=== PATIENT | female | born 1965 | race Hispanic/Latino ===

== ENCOUNTER → 2018-08-25 | Outpatient (CLI) | payer OTHER ==
[~2018-08-25] MED LIST: LOSA100T2 PO; METF-446 PO
== END | disposition home or self-care (01) ==
LOC: LAB 17:34
PROVIDERS: ATTEND Obstetrics & Gynecology
DX: Z01.419 Encounter for gynecological examination (general) (routine) without abnormal findings (principal)
CPT/HCPCS: 36415; 88175

== ENCOUNTER 2019-02-22 02:18 | Emergency (ER) | payer OTHER ==
[2019-02-22] MEDS ORDERED: LIDOCAINE 5% TOPICAL PATCH TP ONE (02:44)
[2019-02-22] MEDS ORDERED: KETOROLAC TROMETHAMINE 60 MG/2 ML VIAL ONE (02:44)
[2019-02-22] MEDS ORDERED: HYDROCODONE/ACETAMINOPHEN 10/325 MG TAB ONE (02:45)
[2019-02-22] MEDS ORDERED: LORAZEPAM 2 MG/ML 1 ML VIAL ONE (02:46)
== END 2019-02-22 04:02 | disposition home or self-care (01) ==
LOC: EDH 02:18
DX: M75.21 Bicipital tendinitis, right shoulder (principal); M62.838 Other muscle spasm; I10 Essential (primary) hypertension; E11.9 Type 2 diabetes mellitus without complications; Z90.49 Acquired absence of other specified parts of digestive tract
CPT/HCPCS: 96372 ×2; 99283; J1885; J2060

== ENCOUNTER 2019-04-21 15:45 | Inpatient (IN) | payer OTHER ==
[~2019-04-21] VITALS: Ht 152.4 cm; Wt 109.3 kg
[2019-04-21 16:21] LABS: BASOPHILS % (AUTO) 0.4 % (0.0-5.0); EOSINOPHILS % (AUTO) 1.5 % (0.0-8.0); HEMATOCRIT 37.1 % (36-48); LYMPHOCYTES % (AUTO) 23.8 % (21.0-51.0); MEAN CORPUSCULAR HEMOGLOBIN 28.9 pg (27.0-33.0); MEAN CORPUSCULAR HGB CONC 33.7 g/dL (32.0-36.0); MEAN CORPUSCULAR VOLUME 85.7 fL (79-99); MONOCYTES % (AUTO) 8.2 % (3.0-13.0); NEUTROPHILS % (AUTO) 66.1 % (40.0-77.0); PLATELET COUNT (AUTO) 236 K/uL (130-400); RED BLOOD CELL COUNT(AUTO) 4.33 MIL/uL (4.00-5.50); RED CELL DISTRIBUTION WIDTH 14.5 % (11.0-15.5); WHITE BLOOD COUNT (AUTO) 8.7 K/uL (4.8-10.8)
[2019-04-21] MEDS ORDERED: METHYLPREDNISOLONE SOD SUCC 40MG/ML 1ML ONE (16:22)
[2019-04-21] MEDS ORDERED: PANTOPRAZOLE SODIUM 40 MG TABLET.DR PO ONE (16:22)
[2019-04-21 16:31] LABS: CREATININE 0.8 mg/dL (0.5-1.5); POTASSIUM 3.5 mmol/L (3.5-5.1)
[2019-04-21 16:36] LABS: ALBUMIN 3.6 g/dL (3.5-5.0); BILIRUBIN,TOTAL 0.3 mg/dL (0.2-1.0); TOTAL PROTEIN, SERUM 7.7 g/dL (6.0-8.3)
[2019-04-21 16:43] LABS: CREATINE KINASE, TOTAL 109 U/L (21-232); MYOGLOBIN 33 ng/mL (10-92); TROPONIN I < 0.04 ng/mL (0.00-0.06)
[2019-04-21] MEDS ORDERED: FUROSEMIDE 10 MG/ML 4ML VIAL IV SCH (17:45)
[2019-04-21] MEDS ORDERED: ZOLPIDEM TARTRATE 5 MG TAB PO PRN (18:00)
[2019-04-21] MEDS ORDERED: CLONIDINE HCL 0.1 MG TABLET PO PRN (18:00)
[2019-04-21] MEDS ORDERED: ONDANSETRON HCL 4 MG/2 ML VIAL IVP PRN ×2 (18:00→21:30)
[2019-04-21] MEDS ORDERED: POTASSIUM CHLORIDE 20MEQ/100ML 100 ML IV PRN (18:00)
[2019-04-21] MEDS ORDERED: POTASSIUM CHLORIDE 10% ELIXIR 20 MEQ/15 ML UDCUP PO PRN (18:00)
[2019-04-21] MEDS ORDERED: LACTULOSE 20 GM/30 ML UDCUP PO PRN (18:00)
[2019-04-21] MEDS ORDERED: ACETAMINOPHEN 325 MG TAB PO PRN (18:00)
[2019-04-21] MEDS ORDERED: POTASSIUM CHLORIDE 20 MEQ ERTAB PO PRN (18:00)
[2019-04-21] MEDS ORDERED: GLUCAGON 1MG KIT 1 MG ML IM PRN (18:00)
[2019-04-21] MEDS ORDERED: MAG HYDROX/AL HYDROX/SIMETH ES 30 ML SUSP UDCUP PO PRN (18:00)
[2019-04-21] MEDS ORDERED: DEXTROSE 50%-WATER 50 ML DISP.SYRIN IV PRN (18:00)
[2019-04-21] MEDS ORDERED: LIDOCAINE HCL-MPF 1% 2ML VIAL IJ PRN (18:00)
[2019-04-21] MEDS ORDERED: DiphenhydrAMINE HCL 50 MG/ML VIAL IVP PRN (18:00)
[2019-04-21] MEDS ORDERED: GUAIFENESIN SUGAR-FREE 100 MG/5 ML UDCUP PO PRN (18:00)
[2019-04-21] MEDS ORDERED: NITROGLYCERIN 0.4 MG SL TAB SL PRN (18:00)
[2019-04-21] MEDS ORDERED: HYDROMORPHONE HCL 0.5 MG/0.5 ML ML IVP PRN (18:15)
[2019-04-21] MEDS ORDERED: FUROSEMIDE 10 MG/ML 4ML VIAL ONE (18:34)
[2019-04-21] MEDS ORDERED: SODIUM CHLORIDE 0.9% 10 ML VIAL IVP PRN (19:15)
[2019-04-21 19:45] VITALS: BP 162/96
[2019-04-21] MEDS ORDERED: DULA1.5P SQ (20:41)
[2019-04-21] MEDS ORDERED: LEVO25TA9 PO (20:41)
[2019-04-21] MEDS: PHARMACY COMMUNICATION MISC SCH (21:30)
[2019-04-21] MEDS: IPRATROPIUM/ALBUTEROL SULFATE 3 ML SOLUTION IH PRN (22:05)
[2019-04-21] MEDS: INSULIN R PO SSI SQ SCH (23:05)
[2019-04-21] MEDS: METHYLPREDNISOLONE SOD SUCC 125MG/2ML VIAL IVP SCH (23:09)
[2019-04-22] VITALS: BP 121/69
[2019-04-22] MEDS: PHARMACY COMMUNICATION MISC SCH ×2 (01:30→05:30)
[2019-04-22 02:25] LABS: ALANINE AMINOTRANSFERASE 59 U/L (12-78); ALBUMIN 3.6 g/dL (3.5-5.0); ASPARTATE AMINOTRANSFERASE 27 U/L (10-37); BILIRUBIN,TOTAL 0.2 mg/dL (0.2-1.0); CARBON DIOXIDE 29 mmol/L (21-32); CHLORIDE 101 mmol/L (101-111); CREATINE KINASE, TOTAL 87 U/L (21-232); CREATININE 0.9 mg/dL (0.5-1.5); GLOMERULAR FILTR. RATE CALC 70 mL/min (>60); GLUCOSE,RANDOM 226 mg/dL (70-105); MYOGLOBIN 16 ng/mL (10-92); POTASSIUM 3.8 mmol/L (3.5-5.1); SODIUM SERUM 138 mmol/L (136-145); TOTAL PROTEIN, SERUM 7.6 g/dL (6.0-8.3); TROPONIN I < 0.04 ng/mL (0.00-0.06); UREA NITROGEN, BLOOD 19 mg/dL (7-18)
[2019-04-22 02:26] LABS: HEMATOCRIT 38.4 % (36-48); MEAN CORPUSCULAR HEMOGLOBIN 29.1 pg (27.0-33.0); MEAN CORPUSCULAR HGB CONC 33.8 g/dL (32.0-36.0); MEAN CORPUSCULAR VOLUME 86.3 fL (79-99); NUCLEATED RED BLOOD CELLS 0.1 % (0.0-0.19); PLATELET COUNT (AUTO) 221 K/uL (130-400); RED BLOOD CELL COUNT(AUTO) 4.45 MIL/uL (4.00-5.50); RED CELL DISTRIBUTION WIDTH 14.1 % (11.0-15.5); WHITE BLOOD COUNT (AUTO) 9.2 K/uL (4.8-10.8)
[2019-04-22 04:00] VITALS: BP 123/72
[2019-04-22] MEDS: INSULIN R PO SSI SQ SCH ×4 (06:30→21:51)
[2019-04-22 07:30] VITALS: BP 131/78
[2019-04-22] MEDS: IPRATROPIUM/ALBUTEROL SULFATE 3 ML SOLUTION IH PRN (07:41)
[2019-04-22 08:32] LABS: CRP QUANTITATIVE 12.3 mg/L (0.00-9.0); THYROID STIMULATING HORMONE 0.43 uIU/mL (0.36-3.74)
[2019-04-22] MEDS: METHYLPREDNISOLONE SOD SUCC 125MG/2ML VIAL IVP SCH ×2 (09:15→17:08)
[2019-04-22] MEDS: PANTOPRAZOLE SODIUM 40 MG TABLET.DR PO SCH (09:15)
[2019-04-22] MEDS: ENOXAPARIN SODIUM 40 MG/0.4 ML SYRINGE SQ SCH (09:16)
[2019-04-22 09:25] LABS: CREATINE KINASE, TOTAL 85 U/L (21-232); MYOGLOBIN 18 ng/mL (10-92); TROPONIN I < 0.04 ng/mL (0.00-0.06)
[2019-04-22 11:00] VITALS: BP 126/77
[2019-04-22] MEDS ORDERED: IOHEXOL 350 MG/ML 100ML INFUS..BTL IV ONE (12:10)
--- NOTE | 2019-04-22 12:36 | NUR ---
Nutrition intervention: Nutrition notification for general body swelling. Pt admitted for chest pain, currently pending 2D echo. Reviewed Weight Loss Tips and DM diet education with pt. Pt very eager and with multiple questions on foods to eat. Pt wants to change diet habits and is looking forward to eating better. Recommendations: Continue Heart healthy diet therapy. Modify with [address] for appropriate diet placement. Consult RD if nutrition questions or concerns arise. Addendum: 04/22/19 at [address] Amended: Links added.
[2019-04-22 16:00] VITALS: BP 121/70
--- NOTE | 2019-04-22 16:55 | NUR ---
INITIAL MET W PT AND SPOUSE AT B/SIDE-[facility], EMPLOYED, INDP OF ADLS, NO DME, SPOUSE GAGE TO PROVIDE TRANSPORT; NO CONCERNS VOICED STILL UNDERGOING WORKUP OF THE CHEST PAIN/SHORTNESS OF BREATH; PENDING PULMONARY CONSULT Addendum: 04/23/19 at 1523 by BRADY CARMEN RN CM Amended: Links added.
[2019-04-22 20:38] VITALS: BP 124/72
[2019-04-23] VITALS (7 sets, daily range): BP systolic 92–131; BP diastolic 45–74
--- NOTE | 2019-04-23 | NUR ---
PT IS AWARE TO BE NPO FOR LEXISCAN PENDING. COMPLAINED OF PAIN TO RIGHT CALF. EDEMA NOTED TO ANKLE AREA. NO CHEST PAIN. NO SOB. CONTINUES ON SOLUMEDROL. INCREASED BLOOD SUGARS. AAO3. PERRLA.
[2019-04-23] MEDS: METHYLPREDNISOLONE SOD SUCC 125MG/2ML VIAL IVP SCH ×3 (00:16→16:00)
[2019-04-23] MEDS: INSULIN R PO SSI SQ SCH ×4 (06:35→20:46)
[2019-04-23] MEDS ORDERED: FUROSEMIDE 20 MG TABLET ONE (08:13)
[2019-04-23] MEDS: ENOXAPARIN SODIUM 40 MG/0.4 ML SYRINGE SQ SCH (08:19)
[2019-04-23] MEDS: PANTOPRAZOLE SODIUM 40 MG TABLET.DR PO SCH (08:19)
[2019-04-23] MEDS: FUROSEMIDE 20 MG TABLET PO SCH (09:00)
[2019-04-23] MEDS: POTASSIUM CHLORIDE 10 MEQ/TAB.SA PO SCH (09:00)
[2019-04-23] MEDS ORDERED: REGADENOSON 0.4 MG/5 ML PF SYG IVP SCH (10:45)
--- NOTE | 2019-04-23 13:00 | NUR ---
DR. INDY MAC Addendum: 04/23/19 at 1422 by CACHORRO YOON RN AGA TEJADA PT
--- NOTE | 2019-04-23 14:20 | NUR ---
DR. INDY MAC AGAIN PENDING CALL BACK Addendum: 04/23/19 at 1422 by CACHORRO YOON RN DISREGARD WRONG PT
--- NOTE | 2019-04-23 14:21 | NUR ---
PT BACK FROM [facility], DENIES SOB OR CHEST PAIN DIETARY TRAY CALLED. WILL CONTINUE TO MONITOR
[2019-04-23] MEDS: PHARMACY COMMUNICATION MISC SCH ×2 (20:04→20:05)
[2019-04-24] MEDS: METHYLPREDNISOLONE SOD SUCC 125MG/2ML VIAL IVP SCH ×3 (00:24→16:31)
[2019-04-24 04:19] VITALS: BP 118/56
[2019-04-24 04:19] LABS: CREATININE 0.8 mg/dL (0.5-1.5); MAGNESIUM 1.9 mg/dL (1.80-2.40); POTASSIUM 3.7 mmol/L (3.5-5.1)
[2019-04-24] MEDS: INSULIN R PO SSI SQ SCH ×3 (06:56→16:31)
[2019-04-24 07:39] VITALS: BP 114/54
--- NOTE | 2019-04-24 09:15 | NUR ---
RT GALILEO/PFT INFORMED BY RT GALILEO THAT PULMONARY FUNCTION TEST CAN BE DONE ON AN OUTPATIENT BASIS DUE TO NONEMERGENT NEED FOR PFT TEST.
[2019-04-24] MEDS: PHARMACY COMMUNICATION MISC SCH ×3 (09:30→16:33)
[2019-04-24] MEDS: FUROSEMIDE 20 MG TABLET PO SCH (09:52)
[2019-04-24] MEDS: POTASSIUM CHLORIDE 10 MEQ/TAB.SA PO SCH (09:53)
[2019-04-24] MEDS: PANTOPRAZOLE SODIUM 40 MG TABLET.DR PO SCH (09:53)
[2019-04-24] MEDS: ENOXAPARIN SODIUM 40 MG/0.4 ML SYRINGE SQ SCH (09:54)
[2019-04-24 11:20] VITALS: BP 116/75
[2019-04-24 15:47] VITALS: BP 109/64
--- NOTE | 2019-04-24 16:30 | NUR ---
DR. CABRERA CALLED MD TO INFORM THAT BENCHMARK OKAYED TO DISCHARGE PATIENT. DR. CABRERA DID GIVE OKAY TO DISCHARGE PATIENTS AND ASK ME TO CALL IN RX FOR LASIX 20MG PO DAILY X 30 DAYS. INFORMED MD THAT PATIENT WAS ON SOLUMEDROL 80MG IV Q8H IN THE HOSPITAL AND I ASKED IF MD WANTED TO TAPER DOWN STEROIDS. DR. CABRERA SAID HE DID NOT WANT TO ORDER STEROIDS AND IT WAS OKAY TO DISCHARGE PATIENT WITH NO STEROID RX.
--- NOTE | 2019-04-24 17:55 | NUR ---
LASIX RX CALLED IN RX LASIX 20MG PO DAILY X30 DAYS TO [facility] [phone]
== END 2019-04-24 18:56 | disposition home or self-care (01) | DRG 204 ==
LOC: EDH 15:45 → OBSVTOIN 16:17 → EDHIP 16:17 → 4AH 19:37
PROVIDERS: ADMIT Internal Medicine; ATTEND Internal Medicine
DX: R06.00 Dyspnea, unspecified (principal); Z68.42 Body mass index [BMI] 45.0-49.9, adult; E66.2 Morbid (severe) obesity with alveolar hypoventilation; J98.11 Atelectasis; J45.909 Unspecified asthma, uncomplicated; E11.9 Type 2 diabetes mellitus without complications; K21.9 Gastro-esophageal reflux disease without esophagitis; E03.9 Hypothyroidism, unspecified; E78.00 Pure hypercholesterolemia, unspecified; M19.90 Unspecified osteoarthritis, unspecified site; R07.89 Other chest pain; E78.5 Hyperlipidemia, unspecified; I10 Essential (primary) hypertension; J98.4 Other disorders of lung; Z82.49 Family history of ischemic heart disease and other diseases of the circulatory system; Z90.49 Acquired absence of other specified parts of digestive tract; Z88.8 Allergy status to other drugs, medicaments and biological substances; Z91.041 Radiographic dye allergy status; Z91.013 Allergy to seafood
CPT/HCPCS: 36415; 71045; 71250; 71275; 78452; 80048; 80053; 82550; 82948; 83735; 83874; 83880; 84238; 84443; 84484; 85025; 85027; 85378; 85651; 86038; 86140; 86215; 86235; 93005; 93017; 93306; 93970; 94640; 94664; 94760; 96374; A9500; G0378; J1650; J1815; J1940; J2785; J2920; J2930; Q9967

== ENCOUNTER → 2019-08-28 | Outpatient (CLI) | payer OTHER ==
[~2019-08-28] MED LIST changes: +DULA1.5P SQ; +LEVO25TA9 PO; -LOSA100T2 PO; -METF-446 PO
[2019-08-28 11:10] LABS: BASOPHILS % (AUTO) 0.5 % (0.0-5.0); EOSINOPHILS % (AUTO) 1.2 % (0.0-8.0); HEMATOCRIT 40.1 % (36-48); LYMPHOCYTES % (AUTO) 26.5 % (21.0-51.0); MEAN CORPUSCULAR HEMOGLOBIN 29.2 pg (27.0-33.0); MEAN CORPUSCULAR HGB CONC 33.6 g/dL (32.0-36.0); MEAN CORPUSCULAR VOLUME 86.9 fL (79-99); MONOCYTES % (AUTO) 6.1 % (3.0-13.0); NEUTROPHILS % (AUTO) 65.7 % (40.0-77.0); PLATELET COUNT (AUTO) 202 K/uL (130-400); RED BLOOD CELL COUNT(AUTO) 4.61 MIL/uL (4.00-5.50); RED CELL DISTRIBUTION WIDTH 14.2 % (11.0-15.5); WHITE BLOOD COUNT (AUTO) 7.5 K/uL (4.8-10.8)
[2019-08-28 11:32] LABS: APPEARANCE,URINE Clear (CLEAR); BILIRUBIN,URINE Negative (NEGATIVE); COLOR,URINE Yellow (YELLOW); GLUCOSE, URINE (UA) Negative (NEGATIVE); KETONES,URINE Negative (NEGATIVE); LEUKOCYTE ESTERASE ,URINE Small (NEGATIVE); NITRATE,URINE Negative (NEGATIVE); OCCULT BLOOD,URINE Negative (NEGATIVE); PROTEIN,URINE Negative (NEGATIVE); UROBILINOGEN,URINE 0.2 mg/dL (0.2-1.0)
[2019-08-28 11:34] LABS: BILIRUBIN,TOTAL 0.4 mg/dL (0.2-1.0); CREATININE 0.7 mg/dL (0.5-1.5); POTASSIUM 3.8 mmol/L (3.5-5.1); THYROID STIMULATING HORMONE 1.47 uIU/mL (0.36-3.74); TOTAL PROTEIN, SERUM 8.1 g/dL (6.0-8.3)
[2019-08-28 11:45] LABS: HEMOGLOBIN A1C 6.3 % (4.0-6.0)
[2019-08-28 12:01] LABS: BACTERIA,URINE Rare /HPF (None Seen); RBC,URINE 0-1 /HPF (0-1); SQUAMOUS EPITHELIAL CELL,UR Rare /HPF (0-2)
== END | disposition home or self-care (01) ==
LOC: LAB 09:29
PROVIDERS: ATTEND Internal Medicine
DX: E78.5 Hyperlipidemia, unspecified (principal); E03.9 Hypothyroidism, unspecified; E78.00 Pure hypercholesterolemia, unspecified; E11.9 Type 2 diabetes mellitus without complications; M19.90 Unspecified osteoarthritis, unspecified site; I10 Essential (primary) hypertension; K21.9 Gastro-esophageal reflux disease without esophagitis; Z90.49 Acquired absence of other specified parts of digestive tract; Z88.8 Allergy status to other drugs, medicaments and biological substances
CPT/HCPCS: 36415; 80053; 80061; 81001; 82306; 83036; 84439; 84443; 85025; A6260

== ENCOUNTER → 2020-06-08 | Outpatient (CLI) | payer OTHER | END | disposition home or self-care (01) | LOC: OIH 11:16 | PROVIDERS: ATTEND Internal Medicine | DX: I10 Essential (primary) hypertension (principal); M47.814 Spondylosis without myelopathy or radiculopathy, thoracic region | CPT/HCPCS: 71046 ==

== ENCOUNTER → 2020-11-07 | Outpatient (CLI) | payer OTHER | END | disposition home or self-care (01) | LOC: RAH 09:04 | PROVIDERS: ATTEND Internal Medicine Cardiovascular Disease | DX: R60.9 Edema, unspecified (principal) | CPT/HCPCS: 93970 ==

== ENCOUNTER → 2020-12-13 | Outpatient (CLI) | payer OTHER ==
[2020-12-13 12:48] LABS: BASOPHILS % (AUTO) 0.3 % (0.0-5.0); EOSINOPHILS % (AUTO) 0.7 % (0.0-8.0); LYMPHOCYTES % (AUTO) 22.9 % (21.0-51.0); MEAN CORPUSCULAR HEMOGLOBIN 28.5 pg (27.0-33.0); MEAN CORPUSCULAR HGB CONC 32.8 g/dL (32.0-36.0); MEAN CORPUSCULAR VOLUME 87.1 fL (79-99); MONOCYTES % (AUTO) 5.8 % (3.0-13.0); NEUTROPHILS % (AUTO) 70.2 % (40.0-77.0); PLATELET COUNT (AUTO) 213 K/uL (130-400); RED BLOOD CELL COUNT(AUTO) 4.59 MIL/uL (4.00-5.50)
[2020-12-13 13:03] LABS: ALBUMIN 3.8 g/dL (3.5-5.0); BILIRUBIN,TOTAL 0.4 mg/dL (0.2-1.0); CREATININE 0.7 mg/dL (0.5-1.5); CRP QUANTITATIVE 21.4 mg/L (0.00-9.0); POTASSIUM 4.3 mmol/L (3.5-5.1)
[2020-12-13 14:13] LABS: ERYTHROCYTE SEDIMENTATION RATE 35 MM/HR (0-30)
== END | disposition home or self-care (01) ==
LOC: LAB 11:41
PROVIDERS: ATTEND Internal Medicine
DX: J06.9 Acute upper respiratory infection, unspecified (principal)
CPT/HCPCS: 36415; 80053; 82728; 85025; 85378; 85651; 86140

== ENCOUNTER 2020-12-14 12:50 | Emergency (ER) | payer OTHER ==
[2020-12-14 14:36] LABS: BASOPHILS % (AUTO) 0.4 % (0.0-5.0); EOSINOPHILS % (AUTO) 0.7 % (0.0-8.0); HEMATOCRIT 41.5 % (36-48); LYMPHOCYTES % (AUTO) 22.3 % (21.0-51.0); MEAN CORPUSCULAR HEMOGLOBIN 28.9 pg (27.0-33.0); MEAN CORPUSCULAR HGB CONC 33.7 g/dL (32.0-36.0); MEAN CORPUSCULAR VOLUME 85.7 fL (79-99); MONOCYTES % (AUTO) 5.9 % (3.0-13.0); NEUTROPHILS % (AUTO) 70.3 % (40.0-77.0); PLATELET COUNT (AUTO) 239 K/uL (130-400); RED BLOOD CELL COUNT(AUTO) 4.84 MIL/uL (4.00-5.50); RED CELL DISTRIBUTION WIDTH 13.9 % (11.0-15.5); WHITE BLOOD COUNT (AUTO) 7.5 K/uL (4.8-10.8)
[2020-12-14 14:41] LABS: CREATININE 0.8 mg/dL (0.5-1.5); POTASSIUM 3.7 mmol/L (3.5-5.1)
[2020-12-14 14:51] LABS: BILIRUBIN,TOTAL 0.5 mg/dL (0.2-1.0); TOTAL PROTEIN, SERUM 8.4 g/dL (6.0-8.3)
[2020-12-14 15:03] LABS: B-TYPE NATRIURETIC PEPTIDE 7 pg/mL (0-100)
[2020-12-14 15:17] LABS: INR 1.07 (0.85-1.15); PROTHROMBIN TIME 11.4 SEC (9.6-11.6)
[2020-12-14 15:18] LABS: PARTIAL THROMBOPLASTIN TIME 30.1 SEC (26.3-35.5)
[2020-12-14 15:19] LABS: ALBUMIN 4.2 g/dL (3.5-5.0)
[2020-12-14] MEDS ORDERED: APIXABAN 2.5 MG TABLET PO ONE (18:21)
[2020-12-14 18:32] LABS: APPEARANCE,URINE Clear (CLEAR); BILIRUBIN,URINE Negative (NEGATIVE); COLOR,URINE Yellow (YELLOW); GLUCOSE, URINE (UA) Negative (NEGATIVE); KETONES,URINE Trace mg/dL (NEGATIVE); LEUKOCYTE ESTERASE ,URINE Moderate (NEGATIVE); NITRATE,URINE Negative (NEGATIVE); OCCULT BLOOD,URINE Negative (NEGATIVE); PROTEIN,URINE Negative (NEGATIVE); UROBILINOGEN,URINE 0.2 mg/dL (0.2-1.0)
[2020-12-14 18:41] LABS: BACTERIA,URINE Rare /HPF (None Seen); MUCUS,URINE Rare LPF (None Seen); RBC,URINE 0-1 /HPF (0-1); SQUAMOUS EPITHELIAL CELL,UR Few /HPF (0-2)
[2020-12-14] MEDS ORDERED: CEFTRIAXONE 1G VIAL ONE (19:06)
== END 2020-12-14 19:24 | disposition home or self-care (01) ==
LOC: EDH 12:50
DX: N30.90 Cystitis, unspecified without hematuria (principal); M79.2 Neuralgia and neuritis, unspecified; M54.6 Pain in thoracic spine; R53.81 Other malaise; R53.83 Other fatigue; Z20.822 Contact with and (suspected) exposure to COVID-19; I10 Essential (primary) hypertension; R05 Cough; E11.9 Type 2 diabetes mellitus without complications; Z91.041 Radiographic dye allergy status; Z98.890 Other specified postprocedural states
CPT/HCPCS: 36415; 71045; 80053; 81001; 82550; 83880; 84145; 84484 ×2; 85025; 85378; 85610; 85730; 87088; 87426; 93005 ×2; 96374; 99285; J0696

== ENCOUNTER → 2020-12-21 | Outpatient (CLI) | payer OTHER ==
[2020-12-21 12:14] LABS: BASOPHILS % (AUTO) 0.4 % (0.0-5.0); EOSINOPHILS % (AUTO) 0.7 % (0.0-8.0); HEMATOCRIT 40.2 % (36-48); LYMPHOCYTES % (AUTO) 23.5 % (21.0-51.0); MEAN CORPUSCULAR HEMOGLOBIN 28.3 pg (27.0-33.0); MEAN CORPUSCULAR HGB CONC 32.6 g/dL (32.0-36.0); MEAN CORPUSCULAR VOLUME 86.8 fL (79-99); MONOCYTES % (AUTO) 5.3 % (3.0-13.0); NEUTROPHILS % (AUTO) 69.8 % (40.0-77.0); PLATELET COUNT (AUTO) 222 K/uL (130-400); RED BLOOD CELL COUNT(AUTO) 4.63 MIL/uL (4.00-5.50); RED CELL DISTRIBUTION WIDTH 13.7 % (11.0-15.5); WHITE BLOOD COUNT (AUTO) 7.3 K/uL (4.8-10.8)
[2020-12-21 12:43] LABS: ALBUMIN 3.9 g/dL (3.5-5.0); BILIRUBIN,TOTAL 0.5 mg/dL (0.2-1.0); CREATININE 0.7 mg/dL (0.5-1.5); CRP QUANTITATIVE 18.8 mg/L (0.00-9.0); MAGNESIUM 1.7 mg/dL (1.80-2.40); POTASSIUM 4.2 mmol/L (3.5-5.1); THYROID STIMULATING HORMONE 1.58 uIU/mL (0.36-3.74); TOTAL PROTEIN, SERUM 8.1 g/dL (6.0-8.3)
[2020-12-21 13:22] LABS: ERYTHROCYTE SEDIMENTATION RATE 34 MM/HR (0-30)
== END | disposition home or self-care (01) ==
LOC: LAB 11:24
PROVIDERS: ATTEND Internal Medicine
DX: I10 Essential (primary) hypertension (principal); F41.8 Other specified anxiety disorders; J06.9 Acute upper respiratory infection, unspecified; K59.1 Functional diarrhea; M79.10 Myalgia, unspecified site; R53.83 Other fatigue; R79.89 Other specified abnormal findings of blood chemistry; U07.1 COVID-19
CPT/HCPCS: 36415; 80053; 82306; 82607; 83735; 84443; 85025; 85378; 85651; 86140

== ENCOUNTER → 2020-12-29 | Outpatient (CLI) | payer OTHER ==
[2020-12-29 09:59] LABS: BASOPHILS % (AUTO) 0.3 % (0.0-5.0); EOSINOPHILS % (AUTO) 1.2 % (0.0-8.0); HEMATOCRIT 38.8 % (36-48); LYMPHOCYTES % (AUTO) 27.5 % (21.0-51.0); MEAN CORPUSCULAR HEMOGLOBIN 28.6 pg (27.0-33.0); MEAN CORPUSCULAR VOLUME 86.6 fL (79-99); MONOCYTES % (AUTO) 6.2 % (3.0-13.0); NEUTROPHILS % (AUTO) 64.5 % (40.0-77.0); PLATELET COUNT (AUTO) 218 K/uL (130-400); RED BLOOD CELL COUNT(AUTO) 4.48 MIL/uL (4.00-5.50); RED CELL DISTRIBUTION WIDTH 13.8 % (11.0-15.5); WHITE BLOOD COUNT (AUTO) 7.4 K/uL (4.8-10.8)
[2020-12-29 10:14] LABS: ALBUMIN 4.1 g/dL (3.5-5.0); BILIRUBIN,TOTAL 0.4 mg/dL (0.2-1.0); CREATININE 0.9 mg/dL (0.5-1.5); CRP QUANTITATIVE 26.3 mg/L (0.00-9.0); POTASSIUM 3.8 mmol/L (3.5-5.1); THYROID STIMULATING HORMONE 1.48 uIU/mL (0.36-3.74); TOTAL PROTEIN, SERUM 8.7 g/dL (6.0-8.3)
[2020-12-29 11:05] LABS: ERYTHROCYTE SEDIMENTATION RATE 34 MM/HR (0-30)
== END | disposition home or self-care (01) ==
LOC: RAH 09:07
PROVIDERS: ATTEND Internal Medicine
DX: M51.35 Other intervertebral disc degeneration, thoracolumbar region (principal); R06.2 Wheezing; R00.0 Tachycardia, unspecified; R25.1 Tremor, unspecified; R53.83 Other fatigue; U07.1 COVID-19
CPT/HCPCS: 36415; 71046; 80053; 82728; 84443; 85025; 85378; 85651; 86140

== ENCOUNTER → 2021-12-21 | Outpatient (CLI) | payer OTHER | END | disposition home or self-care (01) | LOC: RAH 12:50 | PROVIDERS: ATTEND Internal Medicine | DX: S83.249A Other tear of medial meniscus, current injury, unspecified knee, initial encounter (principal); M17.12 Unilateral primary osteoarthritis, left knee; M25.462 Effusion, left knee; X58.XXXA Exposure to other specified factors, initial encounter; Y93.89 Activity, other specified; Y92.89 Other specified places as the place of occurrence of the external cause; Y99.8 Other external cause status | CPT/HCPCS: 73721 ==

== ENCOUNTER 2022-02-17 10:44 | Emergency (ER) | payer OTHER ==
[~2022-02-17] VITALS: Ht 152.4 cm; Wt 108.9 kg
[2022-02-17] MEDS ORDERED: 0.9%NACL 1000ML 2,000 ML IV ONE (11:20)
[2022-02-17] MEDS ORDERED: 0.9%NACL 50ML 50 ML IV ONE (11:23)
[2022-02-17] MEDS ORDERED: 0.9%NACL 1000ML 2,000 ML IV SCH (11:30)
[2022-02-17 11:40] LABS: BASOPHILS % (AUTO) 0.1 % (0.0-5.0); EOSINOPHILS % (AUTO) 0.2 % (0.0-8.0); HEMATOCRIT 38.6 % (36-48); LYMPHOCYTES % (AUTO) 4.6 % (21.0-51.0); MEAN CORPUSCULAR HGB CONC 32.9 g/dL (32.0-36.0); MONOCYTES % (AUTO) 4.2 % (3.0-13.0); NEUTROPHILS % (AUTO) 90.5 % (40.0-77.0); PLATELET COUNT (AUTO) 205 K/uL (130-400); RED BLOOD CELL COUNT(AUTO) 4.54 MIL/uL (4.00-5.50); RED CELL DISTRIBUTION WIDTH 14.1 % (11.0-15.5); WHITE BLOOD COUNT (AUTO) 10.4 K/uL (4.8-10.8)
[2022-02-17 11:48] LABS: CREATININE 0.7 mg/dL (0.5-1.5); POTASSIUM 3.6 mmol/L (3.5-5.1)
[2022-02-17 11:53] LABS: ALBUMIN 3.7 g/dL (3.5-5.0); BILIRUBIN,TOTAL 0.6 mg/dL (0.2-1.0); TOTAL PROTEIN, SERUM 7.7 g/dL (6.0-8.3)
[2022-02-17] MEDS ORDERED: PROMETHAZINE HCL 25 MG/ML 1ML AMPULE IM SCH (12:00)
[2022-02-17 13:37] LABS: APPEARANCE,URINE Clear (CLEAR); BILIRUBIN,URINE Negative (NEGATIVE); COLOR,URINE Yellow (YELLOW); GLUCOSE, URINE (UA) Negative (NEGATIVE); KETONES,URINE Negative (NEGATIVE); LEUKOCYTE ESTERASE ,URINE Trace (NEGATIVE); NITRATE,URINE Negative (NEGATIVE); OCCULT BLOOD,URINE Negative (NEGATIVE); PH,URINE 6.5 (5.0-8.0); PROTEIN,URINE Negative (NEGATIVE)
[2022-02-17] MEDS ORDERED: PROM25TA7 PO (14:03)
[2022-02-17 14:09] VITALS: BP 150/85
[2022-02-17 14:21] LABS: BACTERIA,URINE Rare /HPF (None Seen); RBC,URINE 0-1 /HPF (0-1); SQUAMOUS EPITHELIAL CELL,UR Rare /HPF (0-2); WBC,URINE None Seen /HPF (0-1)
== END 2022-02-17 14:20 | disposition home or self-care (01) ==
LOC: EDH 10:44
DX: K52.9 Noninfective gastroenteritis and colitis, unspecified (principal); E86.9 Volume depletion, unspecified; I10 Essential (primary) hypertension; Z88.8 Allergy status to other drugs, medicaments and biological substances; Z90.49 Acquired absence of other specified parts of digestive tract
CPT/HCPCS: 36415; 80053; 81001; 82948; 83690; 85025; 96360; 96361; 96372; 99283; J2550; J7030

== ENCOUNTER → 2022-05-25 | Outpatient (CLI) | payer OTHER ==
[~2022-05-25] MED LIST changes: +PROM25TA7 PO
== END | disposition home or self-care (01) ==
LOC: LAB 05-24 07:58
PROVIDERS: ATTEND Internal Medicine
DX: Z12.11 Encounter for screening for malignant neoplasm of colon (principal); E03.9 Hypothyroidism, unspecified; E11.65 Type 2 diabetes mellitus with hyperglycemia; E78.5 Hyperlipidemia, unspecified; I10 Essential (primary) hypertension; J06.9 Acute upper respiratory infection, unspecified; J45.901 Unspecified asthma with (acute) exacerbation; R53.83 Other fatigue
CPT/HCPCS: 82043

== ENCOUNTER 2022-09-17 09:01 | Observation (INO) | payer OTHER ==
[~2022-09-17] VITALS: Ht 157.5 cm; Wt 113.9 kg
[2022-09-17] MEDS ORDERED: ASPIRIN 81MG CHEW TAB PO ONE (09:30)
[2022-09-17] MEDS: NITROGLYCERIN 0.4 MG SL TAB SL PRN ×2 (09:39→09:54)
[2022-09-17 09:40] LABS: CREATININE 0.8 mg/dL (0.5-1.5); POTASSIUM 3.8 mmol/L (3.5-5.1)
[2022-09-17 09:47] LABS: ALBUMIN 3.6 g/dL (3.5-5.0); TOTAL PROTEIN, SERUM 7.6 g/dL (6.0-8.3)
[2022-09-17 09:51] LABS: BASOPHILS % (AUTO) 0.2 % (0.0-5.0); HEMATOCRIT 38.5 % (36-48); LYMPHOCYTES % (AUTO) 27.2 % (21.0-51.0); MEAN CORPUSCULAR HEMOGLOBIN 28.3 pg (27.0-33.0); MEAN CORPUSCULAR HGB CONC 32.7 g/dL (32.0-36.0); MEAN CORPUSCULAR VOLUME 86.3 fL (79-99); MONOCYTES % (AUTO) 7.2 % (3.0-13.0); PLATELET COUNT (AUTO) 197 K/uL (130-400); RED BLOOD CELL COUNT(AUTO) 4.46 MIL/uL (4.00-5.50); RED CELL DISTRIBUTION WIDTH 14.1 % (11.0-15.5); WHITE BLOOD COUNT (AUTO) 8.2 K/uL (4.8-10.8)
[2022-09-17] MEDS ORDERED: NITROGLYCERIN 50MG/D5W 250ML 250 BOT IV SCH (11:15)
[2022-09-17] MEDS ORDERED: HEPARIN 25,000 UNITS/250ML D5W 250 ML IV SCH (11:30)
[2022-09-17] MEDS ORDERED: NITROGLYCERIN 50MG/D5W 250ML 1 BOT ONE (11:45)
[2022-09-17 12:19] LABS: INR 0.93 (0.85-1.15); PROTHROMBIN TIME 10.1 SEC (9.6-11.6)
[2022-09-17 12:20] LABS: PARTIAL THROMBOPLASTIN TIME 27.6 SEC (26.3-35.5)
[2022-09-17] MEDS ORDERED: AMLODIPINE 5 MG TAB PO SCH (12:30)
[2022-09-17] MEDS ORDERED: HEPARIN 5,000 UNIT VIAL ONE (12:33)
[2022-09-17 13:20] LABS: HCG,QUALITATIVE URINE NEGATIVE (NEGATIVE)
[2022-09-17 13:24] LABS: APPEARANCE,URINE CLEAR (CLEAR); BILIRUBIN,URINE NEGATIVE (NEGATIVE); COLOR,URINE COLORLESS (YELLOW); GLUCOSE, URINE (UA) NEGATIVE (NEGATIVE); KETONES,URINE NEGATIVE (NEGATIVE); LEUKOCYTE ESTERASE ,URINE 25 Leu/uL (NEGATIVE); NITRATE,URINE NEGATIVE (NEGATIVE); OCCULT BLOOD,URINE NEGATIVE (NEGATIVE); PROTEIN,URINE NEGATIVE (NEGATIVE); UROBILINOGEN,URINE 0.2 mg/dL (0.2-1.0)
[2022-09-17 13:31] LABS: BACTERIA,URINE RARE /HPF (None Seen); RBC,URINE 0-1 /HPF (0-1); SQUAMOUS EPITHELIAL CELL,UR MANY /HPF (0-2)
[2022-09-17] MEDS ORDERED: LABE100T7 PO (14:23)
[2022-09-17] MEDS ORDERED: NITROGLYCERIN 0.4 MG SL TAB SL PRN (17:30)
[2022-09-17 18:09] LABS: PROTHROMBIN TIME 10.9 SEC (9.6-11.6)
[2022-09-17 18:13] VITALS: BP 149/80
[2022-09-17] MEDS ORDERED: HEPARIN 25,000 UNITS/250ML D5W 250 ML IV ONE (18:25)
[2022-09-17 18:29] LABS: PARTIAL THROMBOPLASTIN TIME > 139.0 SEC (26.3-35.5)
[2022-09-17 19:18] LABS: BASOPHILS % (AUTO) 0.2 % (0.0-5.0); EOSINOPHILS % (AUTO) 0.8 % (0.0-8.0); HEMATOCRIT 36.6 % (36-48); MEAN CORPUSCULAR HEMOGLOBIN 28.3 pg (27.0-33.0); MEAN CORPUSCULAR HGB CONC 33.1 g/dL (32.0-36.0); MEAN CORPUSCULAR VOLUME 85.5 fL (79-99); MONOCYTES % (AUTO) 6.9 % (3.0-13.0); NEUTROPHILS % (AUTO) 61.7 % (40.0-77.0); PLATELET COUNT (AUTO) 218 K/uL (130-400); RED BLOOD CELL COUNT(AUTO) 4.28 MIL/uL (4.00-5.50); RED CELL DISTRIBUTION WIDTH 14.1 % (11.0-15.5); WHITE BLOOD COUNT (AUTO) 8.9 K/uL (4.8-10.8)
[2022-09-17] MEDS ORDERED: TICAGRELOR 90 MG TABLET PO SCH (19:30)
[2022-09-17] MEDS ORDERED: PREDNISONE 10 MG TABLET PO ONE (19:45)
[2022-09-17 20:03] VITALS: BP 159/78
[2022-09-17] MEDS ORDERED: ATORVASTATIN 40 MG TABLET PO SCH (21:00)
[2022-09-17] MEDS ORDERED: ENOXAPARIN SODIUM 1 MG/KG SQ SCH (21:00)
[2022-09-17 23:28] VITALS: BP 136/74
[2022-09-18] VITALS (11 sets, daily range): BP systolic 121–161; BP diastolic 51–89
[2022-09-18] MEDS ORDERED: PREDNISONE 10 MG TABLET PO ONE (01:00)
[2022-09-18 02:22] LABS: BASOPHILS % (AUTO) 0.2 % (0.0-5.0); EOSINOPHILS % (AUTO) 0.1 % (0.0-8.0); HEMATOCRIT 36.6 % (36-48); LYMPHOCYTES % (AUTO) 10.3 % (21.0-51.0); MEAN CORPUSCULAR HEMOGLOBIN 28.4 pg (27.0-33.0); MEAN CORPUSCULAR HGB CONC 33.6 g/dL (32.0-36.0); MEAN CORPUSCULAR VOLUME 84.5 fL (79-99); MONOCYTES % (AUTO) 2.3 % (3.0-13.0); NEUTROPHILS % (AUTO) 86.6 % (40.0-77.0); PLATELET COUNT (AUTO) 217 K/uL (130-400); RED BLOOD CELL COUNT(AUTO) 4.33 MIL/uL (4.00-5.50); WHITE BLOOD COUNT (AUTO) 10.1 K/uL (4.8-10.8)
[2022-09-18] MEDS ORDERED: IOHEXOL 350 MG/ML 100ML INFUS..BTL IV ONE (08:22)
[2022-09-18] MEDS ORDERED: FENTANYL CITRATE PF 50 MCG/1 ML 2ML VIAL ONE (08:22)
[2022-09-18] MEDS ORDERED: LIDOCAINE HCL 1% 20 ML VIAL ONE (08:22)
[2022-09-18] MEDS ORDERED: NITROGLYCERIN 50MG VIAL ONE (08:22)
[2022-09-18] MEDS ORDERED: HEPARIN 10,000 UNIT/10ML (1,000 UNIT/ML) VIAL ONE (08:22)
[2022-09-18] MEDS ORDERED: SOLU-MEDROL 125MG VIAL ONE ×2 (08:22→08:36)
[2022-09-18] MEDS ORDERED: NICARDIPINE 25MG INJ IV ONE (08:22)
[2022-09-18] MEDS ORDERED: IOHEXOL-350 75 ML VIAL IV ONE (08:22)
[2022-09-18] MEDS ORDERED: MIDAZOLAM HCL 1 MG/ML 2ML VIAL ONE (08:22)
[2022-09-18] MEDS ORDERED: IOHEXOL-350 50ML VIAL IV ONE (08:22)
[2022-09-18] MEDS ORDERED: DiphenhydrAMINE HCL 50 MG/ML VIAL ONE (08:23)
[2022-09-18] MEDS ORDERED: VERAPAMIL HCL 2.5 MG/ML VIAL ONE (08:32)
[2022-09-18] MEDS ORDERED: PREDNISONE 10 MG TABLET ONE (08:40)
[2022-09-18] MEDS ORDERED: TICAGRELOR 90 MG TABLET PO SCH (09:00)
[2022-09-18] MEDS ORDERED: ASPIRIN 81 MG EC TAB PO SCH (09:00)
[2022-09-18] MEDS: 0.9%NACL 1000ML 500 ML IV SCH ×2 (10:50→15:15)
[2022-09-18] MEDS ORDERED: AMLO5TAB4 PO (14:16)
== END 2022-09-18 15:40 | disposition home or self-care (01) ==
LOC: EDH 09:01 → EDHIP 12:20 → 2CH 17:16 → 2DH 17:34
PROVIDERS: ADMIT Internal Medicine; ATTEND Internal Medicine
DX: I20.1 Angina pectoris with documented spasm (principal); R07.89 Other chest pain; I10 Essential (primary) hypertension; E11.9 Type 2 diabetes mellitus without complications; E78.5 Hyperlipidemia, unspecified; I20.0 Unstable angina; J45.909 Unspecified asthma, uncomplicated; K21.9 Gastro-esophageal reflux disease without esophagitis; Z79.4 Long term (current) use of insulin; Z90.49 Acquired absence of other specified parts of digestive tract; Z90.710 Acquired absence of both cervix and uterus; Z91.041 Radiographic dye allergy status; Z79.899 Other long term (current) drug therapy; Z98.890 Other specified postprocedural states
CPT/HCPCS: 36415; 71045; 80053; 81001; 81025; 82550; 82948; 83874; 84484; 85025; 85610; 85730; 93005; 93306; 93356; 93458; 96365; 96366; 96368; 99156; 99157; C1769; G0378; J1200; J1644; J2250; J2930; J3010; J3490; J7030; J7512; Q9967

== ENCOUNTER → 2022-10-11 | Outpatient (CLI) | payer OTHER ==
[~2022-10-11] MED LIST changes: +AMLO5TAB4 PO; +LABE100T7 PO; -PROM25TA7 PO
== END | disposition home or self-care (01) ==
LOC: RAH 13:36
PROVIDERS: ATTEND Internal Medicine
DX: Z12.31 Encounter for screening mammogram for malignant neoplasm of breast (principal)
CPT/HCPCS: 77067

== ENCOUNTER → 2023-02-21 | Outpatient (CLI) | payer OTHER ==
[2023-02-21 10:54] LABS: BASOPHILS % (AUTO) 0.1 % (0.0-5.0); HEMATOCRIT 38.5 % (36-48); LYMPHOCYTES % (AUTO) 17.8 % (21.0-51.0); MEAN CORPUSCULAR HEMOGLOBIN 28.9 pg (27.0-33.0); MEAN CORPUSCULAR VOLUME 87.5 fL (79-99); MONOCYTES % (AUTO) 6.5 % (3.0-13.0); NEUTROPHILS % (AUTO) 74.2 % (40.0-77.0); PLATELET COUNT (AUTO) 217 K/uL (130-400); RED CELL DISTRIBUTION WIDTH 14.4 % (11.0-15.5); WHITE BLOOD COUNT (AUTO) 7.7 K/uL (4.8-10.8)
[2023-02-21 11:03] LABS: HEMOGLOBIN A1C 5.5 % (4.0-6.0)
[2023-02-21 11:32] LABS: ALBUMIN 3.8 g/dL (3.5-5.0); BILIRUBIN,DIRECT 0.1 mg/dL (0.0-0.3); CREATININE 0.8 mg/dL (0.5-1.5); TOTAL PROTEIN, SERUM 7.3 g/dL (6.0-8.3)
== END | disposition home or self-care (01) ==
LOC: LAB 09:46
PROVIDERS: ATTEND Internal Medicine
DX: I10 Essential (primary) hypertension (principal); E11.65 Type 2 diabetes mellitus with hyperglycemia; E03.9 Hypothyroidism, unspecified; E53.9 Vitamin B deficiency, unspecified; K76.0 Fatty (change of) liver, not elsewhere classified; K86.1 Other chronic pancreatitis; E78.5 Hyperlipidemia, unspecified; E55.9 Vitamin D deficiency, unspecified
CPT/HCPCS: 36415; 80053; 80061; 80076; 82043; 82248; 82306; 82607; 83036; 83690; 84443; 85025

== ENCOUNTER → 2023-04-29 | Outpatient (CLI) | payer OTHER ==
[2023-04-29 12:19] LABS: BASOPHILS % (AUTO) 0.2 % (0.0-5.0); EOSINOPHILS % (AUTO) 0.3 % (0.0-8.0); HEMATOCRIT 39.4 % (36-48); LYMPHOCYTES % (AUTO) 13.3 % (21.0-51.0); MEAN CORPUSCULAR HEMOGLOBIN 28.6 pg (27.0-33.0); MEAN CORPUSCULAR VOLUME 86.6 fL (79-99); MONOCYTES % (AUTO) 4.4 % (3.0-13.0); NEUTROPHILS % (AUTO) 81.5 % (40.0-77.0); PLATELET COUNT (AUTO) 244 K/uL (130-400); RED BLOOD CELL COUNT(AUTO) 4.55 MIL/uL (4.00-5.50); RED CELL DISTRIBUTION WIDTH 14.2 % (11.0-15.5); WHITE BLOOD COUNT (AUTO) 9.4 K/uL (4.8-10.8)
[2023-04-29 12:31] LABS: ALBUMIN 3.9 g/dL (3.5-5.0); CREATININE 0.7 mg/dL (0.5-1.5); POTASSIUM 4.4 mmol/L (3.5-5.1); TOTAL PROTEIN, SERUM 7.7 g/dL (6.0-8.3)
[2023-04-29 13:08] LABS: B-TYPE NATRIURETIC PEPTIDE < 5 pg/mL (0-100)
== END | disposition home or self-care (01) ==
LOC: LAB 11:27
PROVIDERS: ATTEND Internal Medicine
DX: I10 Essential (primary) hypertension (principal); R06.02 Shortness of breath; E03.9 Hypothyroidism, unspecified; E11.65 Type 2 diabetes mellitus with hyperglycemia; H60.92 Unspecified otitis externa, left ear; J30.9 Allergic rhinitis, unspecified
CPT/HCPCS: 36415; 71046; 80053; 83880; 85025

== ENCOUNTER → 2023-09-04 | Outpatient (CLI) | payer OTHER ==
[2023-09-04 09:45] LABS: BASOPHILS # (AUTO) 0.03 K/uL (0.00-0.20); BASOPHILS % (AUTO) 0.4 % (0.0-5.0); EOSINOPHILS # (AUTO) 0.09 K/uL (0.00-0.70); EOSINOPHILS % (AUTO) 1.1 % (0.0-8.0); HEMATOCRIT 40.4 % (36-48); IMMATURE GRANULOCYTE ABSOLUTE 0.04 K/uL (0-1); LYMPHOCYTES # (AUTO) 1.5 K/uL (1.0-4.8); LYMPHOCYTES % (AUTO) 18.4 % (21.0-51.0); MEAN CORPUSCULAR HEMOGLOBIN 28.9 pg (27.0-33.0); MEAN CORPUSCULAR HGB CONC 32.4 g/dL (32.0-36.0); MONOCYTES # (AUTO) 0.4 K/uL (0.1-1.0); MONOCYTES % (AUTO) 5.3 % (3.0-13.0); NEUTROPHILS # (AUTO) 5.9 K/uL (1.8-7.7); NEUTROPHILS % (AUTO) 74.3 % (40.0-77.0); PLATELET COUNT (AUTO) 233 K/uL (130-400); RED BLOOD CELL COUNT(AUTO) 4.54 MIL/uL (4.00-5.50); RED CELL DISTRIBUTION WIDTH 13.7 % (11.0-15.5)
[2023-09-04 09:55] LABS: HEMOGLOBIN A1C 5.6 % (4.0-6.0)
[2023-09-04 10:09] LABS: BILIRUBIN,TOTAL 0.5 mg/dL (0.2-1.0); CREATININE 0.8 mg/dL (0.5-1.5); POTASSIUM 3.8 mmol/L (3.5-5.1); THYROID STIMULATING HORMONE 1.8 uIU/mL (0.36-3.74); TOTAL PROTEIN, SERUM 8.3 g/dL (6.0-8.3)
== END | disposition home or self-care (01) ==
LOC: LAB 10:00
PROVIDERS: ATTEND Internal Medicine
DX: E11.65 Type 2 diabetes mellitus with hyperglycemia (principal); I10 Essential (primary) hypertension; E03.9 Hypothyroidism, unspecified
CPT/HCPCS: 36415; 80053; 80061; 83036; 83690; 84443; 85025

== ENCOUNTER → 2023-09-06 | Outpatient (CLI) | payer OTHER ==
[2023-09-06 15:14] LABS: APPEARANCE,URINE CLOUDY (CLEAR); BILIRUBIN,URINE NEGATIVE (NEGATIVE); COLOR,URINE YELLOW (YELLOW); GLUCOSE, URINE (UA) NEGATIVE (NEGATIVE); KETONES,URINE NEGATIVE (NEGATIVE); LEUKOCYTE ESTERASE ,URINE 500 Leu/uL (NEGATIVE); NITRATE,URINE NEGATIVE (NEGATIVE); OCCULT BLOOD,URINE NEGATIVE (NEGATIVE); PROTEIN,URINE 10 mg/dL (NEGATIVE); UROBILINOGEN,URINE 0.2 mg/dL (0.2-1.0)
[2023-09-06 15:20] LABS: ADD UA MICROSCOPIC YES
[2023-09-06 15:22] LABS: BACTERIA,URINE RARE /HPF (None Seen); MUCUS,URINE RARE LPF (None Seen); NON-SQUAMOUS EPITHELIAL CELL 1 /HPF (0-2); SQUAMOUS EPITHELIAL CELL,UR MANY /HPF (0-2); WBC,URINE 51-100 /HPF (0-1)
== END | disposition home or self-care (01) ==
LOC: LAB 07:46
PROVIDERS: ATTEND Internal Medicine
DX: J84.89 Other specified interstitial pulmonary diseases (principal); M47.25 Other spondylosis with radiculopathy, thoracolumbar region; I10 Essential (primary) hypertension; R30.0 Dysuria
CPT/HCPCS: 71046; 72070; 81001; 87088

== ENCOUNTER 2024-08-06 08:49 | Emergency (ER) | payer OTHER ==
[~2024-08-06] VITALS: Ht 152.4 cm; Wt 95.7 kg
[2024-08-06] MEDS ORDERED: IBUP-2070 PO (10:42)
[2024-08-06] MEDS ORDERED: LIDO1ADH71 TP (10:42)
[2024-08-06] MEDS: LIDOCAINE 4% ADH..PATCH TP ONE ×2 (11:54→11:56)
[2024-08-06] MEDS: ibuPROFEN 600 MG TABLET PO ONE ×2 (11:54→11:56)
[2024-08-06] MEDS: ketOROlac 30MG VIAL (30MG/ML) IM ONE (11:54)
[2024-08-06] MEDS: CYCLOBENZAPRINE HCL 10 MG TABLET PO ONE ×2 (11:55→11:56)
[2024-08-06] MEDS: ketOROlac 60 MG VIAL (30MG/ML) IM ONE (11:56)
[2024-08-06 12:06] VITALS: BP 149/86; PULSE 84; RESP 16; TEMP 97.7; O2SAT 100
== END 2024-08-06 12:17 | disposition home or self-care (01) ==
LOC: EDH 08:49
DX: S43.401A Unspecified sprain of right shoulder joint, initial encounter (principal); S13.9XXA Sprain of joints and ligaments of unspecified parts of neck, initial encounter; E11.9 Type 2 diabetes mellitus without complications; I11.0 Hypertensive heart disease with heart failure; I50.9 Heart failure, unspecified; Z91.041 Radiographic dye allergy status; Z88.8 Allergy status to other drugs, medicaments and biological substances; Z79.899 Other long term (current) drug therapy; Z90.49 Acquired absence of other specified parts of digestive tract; Z90.710 Acquired absence of both cervix and uterus; X50.0XXA Overexertion from strenuous movement or load, initial encounter; Y93.89 Activity, other specified; Y92.89 Other specified places as the place of occurrence of the external cause; Y99.8 Other external cause status
CPT/HCPCS: 99284; 73030; 96372; J1885

== ENCOUNTER → 2024-08-19 | Outpatient (CLI) | payer OTHER ==
[~2024-08-19] MED LIST changes: +IBUP-2070 PO; +LIDO1ADH71 TP
[2024-08-20 11:40] LABS: BASOPHILS # (AUTO) 0.04 K/uL (0.00-0.20); BASOPHILS % (AUTO) 0.5 % (0.0-5.0); EOSINOPHILS # (AUTO) 0.09 K/uL (0.00-0.70); HEMATOCRIT 39.3 % (36-48); IMMATURE GRANULOCYTE ABSOLUTE 0.02 K/uL (0-1); LYMPHOCYTES # (AUTO) 1.9 K/uL (1.0-4.8); LYMPHOCYTES % (AUTO) 21.2 % (21.0-51.0); MEAN CORPUSCULAR HEMOGLOBIN 28.7 pg (27.0-33.0); MEAN CORPUSCULAR HGB CONC 32.8 g/dL (32.0-36.0); MEAN CORPUSCULAR VOLUME 87.5 fL (79-99); MONOCYTES # (AUTO) 0.5 K/uL (0.1-1.0); MONOCYTES % (AUTO) 5.5 % (3.0-13.0); NEUTROPHILS # (AUTO) 6.3 K/uL (1.8-7.7); NEUTROPHILS % (AUTO) 71.6 % (40.0-77.0); PLATELET COUNT (AUTO) 236 K/uL (130-400); RED BLOOD CELL COUNT(AUTO) 4.49 MIL/uL (4.00-5.50); RED CELL DISTRIBUTION WIDTH 13.6 % (11.0-15.5); WHITE BLOOD COUNT (AUTO) 8.8 K/uL (4.8-10.8)
[2024-08-20 11:48] LABS: HEMOGLOBIN A1C 5.5 % (4.0-6.0)
[2024-08-20 12:32] LABS: BILIRUBIN,DIRECT 0.1 mg/dL (0.0-0.3); BILIRUBIN,TOTAL 0.4 mg/dL (0.2-1.0); CREATININE 0.9 mg/dL (0.5-1.0); POTASSIUM 4.2 mmol/L (3.5-5.1); THYROID STIMULATING HORMONE 2.14 uIU/mL (0.36-3.74); TOTAL PROTEIN, SERUM 8.1 g/dL (6.0-8.3)
== END | disposition home or self-care (01) ==
LOC: LAB 07:27
PROVIDERS: ATTEND Internal Medicine
DX: E11.65 Type 2 diabetes mellitus with hyperglycemia (principal); E78.5 Hyperlipidemia, unspecified; E03.9 Hypothyroidism, unspecified; R53.83 Other fatigue
CPT/HCPCS: 36415; 80048; 80061; 80076; 82043; 82306; 82570; 82607; 83036; 84443; 85025

== ENCOUNTER → 2024-10-09 | Outpatient (CLI) | payer OTHER ==
[2024-10-09 10:57] LABS: BASOPHILS # (AUTO) 0.03 K/uL (0.00-0.20); BASOPHILS % (AUTO) 0.4 % (0.0-5.0); EOSINOPHILS # (AUTO) 0.08 K/uL (0.00-0.70); HEMATOCRIT 37.2 % (36-48); IMMATURE GRANULOCYTE ABSOLUTE 0.01 K/uL (0-1); LYMPHOCYTES # (AUTO) 1.7 K/uL (1.0-4.8); LYMPHOCYTES % (AUTO) 21.7 % (21.0-51.0); MEAN CORPUSCULAR HEMOGLOBIN 29.1 pg (27.0-33.0); MEAN CORPUSCULAR HGB CONC 33.3 g/dL (32.0-36.0); MEAN CORPUSCULAR VOLUME 87.3 fL (79-99); MONOCYTES # (AUTO) 0.5 K/uL (0.1-1.0); NEUTROPHILS # (AUTO) 5.4 K/uL (1.8-7.7); NEUTROPHILS % (AUTO) 70.8 % (40.0-77.0); PLATELET COUNT (AUTO) 224 K/uL (130-400); RED BLOOD CELL COUNT(AUTO) 4.26 MIL/uL (4.00-5.50); RED CELL DISTRIBUTION WIDTH 13.9 % (11.0-15.5); WHITE BLOOD COUNT (AUTO) 7.7 K/uL (4.8-10.8)
[2024-10-09 11:34] LABS: ALBUMIN 3.8 g/dL (3.5-5.0); BILIRUBIN,TOTAL 0.4 mg/dL (0.2-1.0); CREATININE 0.7 mg/dL (0.5-1.0); POTASSIUM 4.5 mmol/L (3.5-5.1); THYROID STIMULATING HORMONE 1.86 uIU/mL (0.36-3.74); TOTAL PROTEIN, SERUM 7.7 g/dL (6.0-8.3)
[2024-10-09 12:33] LABS: ERYTHROCYTE SEDIMENTATION RATE 30 MM/HR (0-30)
== END | disposition home or self-care (01) ==
LOC: LAB 10-08 08:31
PROVIDERS: ATTEND Internal Medicine
DX: N64.4 Mastodynia (principal); I88.9 Nonspecific lymphadenitis, unspecified; E03.9 Hypothyroidism, unspecified
CPT/HCPCS: 36415; 80053; 84443; 85025; 85651

== ENCOUNTER → 2024-10-15 | Outpatient (CLI) | payer OTHER ==
--- NOTE | 2024-10-15 15:24 | HMCIMG ---
US SOFT TISSUE AXILLA REASON: LYMPHADENITIS AND RT BREAST PAIN. COMPARISON: None TECHNIQUE: Left axilla ultrasound study was performed. FINDINGS: There are multiple left axillary lymph nodes measuring 2.4 x 1.2 x 2 cm, 2.4 x 1 x 1.8 cm and 1.4 x 0.5 x 1.5 cm each. IMPRESSION: Borderline size left axillary lymph nodes.
--- NOTE | 2024-10-16 08:59 | HMCIMG ---
PROCEDURE: MAMMO DX BILATERAL, US BREAST COMPLETE UNILATERAL HISTORY: Lumps under axilla COMPARISON: 10/11/2022 TECHNIQUE: Bilateral digital diagnostic mammogram with CAD was performed. Additional cone compression views of bilateral breasts were obtained. Right breast ultrasound study was performed. FINDINGS: The breasts are heterogeneously dense, which may obscure small masses. Stable intramammary lymph nodes are seen in both breasts. Dystrophic calcifications are again seen in the left breast. There is no evidence of a dominant mass, or suspicious microcalcification. There is no evidence of nipple retraction or skin thickening. Right breast ultrasound study shows right axillary lymph nodes with the largest measuring 6.3 x 1.8 x 1.9 cm at the region of interest. There is prominent retroareolar duct measuring 2 mm. IMPRESSION: 1. Stable mammogram. Right axillary lymph nodes with the largest at the region of interest measuring 6.3 x 1.8 x 1.9 cm. BI-RADS: CATEGORY 2: BENIGN FINDINGS Recommend monthly self breast exam as well as annual clinical examination. A negative x-ray should not delay biopsy if a dominant or clinically suspicious mass is present, since 8-10% of cancers are not identified by mammography. Dense breasts particularly, may obscure an underlying neoplasm. Some of these may be detected clinically and therefore, clinical examination is an essential part of breast evaluation.
== END | disposition home or self-care (01) ==
LOC: RAH 13:52
PROVIDERS: ATTEND Internal Medicine
DX: R59.0 Localized enlarged lymph nodes (principal); N64.4 Mastodynia; R92.30 Dense breasts, unspecified
CPT/HCPCS: 76641; 76882; 77066

== ENCOUNTER → 2024-12-02 | Outpatient (CLI) | payer OTHER ==
[~2024-12-02] MED LIST changes: +TIRZ10PE SQ
[2024-12-02 09:31] LABS: INR <= 0.93 (0.85-1.15); PROTHROMBIN TIME 10.1 SEC (9.6-11.6)
[2024-12-02 09:32] LABS: PARTIAL THROMBOPLASTIN TIME 23.6 SEC (26.3-35.5)
--- NOTE | 2024-12-02 10:10 | NUR ---
U/S GD RT AXILLARY LYMPH NODE BX TOLERATED PROCEDURE. PERFORMED BY DR Mary CARREON. PUNCTURE SITE TO RT AXILLA. X7 SPECIMEN REMOVED AND SENT TO LAB. END OF PROCEDURE AT 0950. DRESSING APPLIED. NO BLEEDING NOTED. DRY AND INTACT. DISCHARGE INSTRUCTIONS GIVEN. VERBALIZED UNDERSTANDING. DENIES PAIN. A&O. DISCHARGE VIA AMBULATORY.
--- NOTE | 2024-12-02 10:13 | HMCIMG ---
US BIOPSY LYMPHNODE HISTORY: Right axillary lymph node COMPARISON: None TECHNIQUE: Informed consent was obtained. Risks and benefits were explained to the patient. A timeout was performed. Patient was prepped and draped in a sterile fashion. Local anesthetics was given as required. Under ultrasound guidance, right axillary lymph node was localized at deep aspect. The study is limited due to patient's body habitus. Ultrasound guidance core biopsy was performed with 20-gauge Bard biopsy gun with coaxial arrangement. FINDINGS: 8 core biopsy samples were obtained. Patient tolerated procedure without complication. Patient left the department in good condition. IMPRESSION: 1. Uncomplicated ultrasound guidance right axillary lymph node core biopsy.
== END | disposition home or self-care (01) ==
LOC: RAH 08:23
PROVIDERS: ATTEND Student in an Organized Health Care Education/Training Program
DX: R59.0 Localized enlarged lymph nodes (principal); D48.61 Neoplasm of uncertain behavior of right breast; Z79.01 Long term (current) use of anticoagulants
CPT/HCPCS: 85610; 85730; 88184; 88185; 36415; 88305; 38505; 76942; 88188; C1887

== ENCOUNTER → 2024-12-21 | Outpatient (CLI) | payer OTHER ==
[2024-12-18 15:55] VITALS: BP 143/84; PULSE 80; RESP 18; TEMP 97.7
[~2024-12-21] VITALS: Ht 152.4 cm; Wt 233.3 kg
[~2024-12-21] MED LIST changes: -AMLO5TAB4 PO; -DULA1.5P SQ; -IBUP-2070 PO; -LABE100T7 PO; -LIDO1ADH71 TP
[2024-12-21 11:54] LABS: BASOPHILS # (AUTO) 0.02 K/uL (0.00-0.20); BASOPHILS % (AUTO) 0.3 % (0.0-5.0); EOSINOPHILS # (AUTO) 0.06 K/uL (0.00-0.70); EOSINOPHILS % (AUTO) 0.8 % (0.0-8.0); HEMATOCRIT 36.4 % (36-48); IMMATURE GRANULOCYTE ABSOLUTE 0.02 K/uL (0-1); LYMPHOCYTES # (AUTO) 1.8 K/uL (1.0-4.8); LYMPHOCYTES % (AUTO) 22.9 % (21.0-51.0); MEAN CORPUSCULAR HEMOGLOBIN 28.9 pg (27.0-33.0); MEAN CORPUSCULAR HGB CONC 33.5 g/dL (32.0-36.0); MEAN CORPUSCULAR VOLUME 86.3 fL (79-99); MONOCYTES # (AUTO) 0.6 K/uL (0.1-1.0); MONOCYTES % (AUTO) 7.2 % (3.0-13.0); NEUTROPHILS # (AUTO) 5.4 K/uL (1.8-7.7); NEUTROPHILS % (AUTO) 68.5 % (40.0-77.0); PLATELET COUNT (AUTO) 235 K/uL (130-400); RED BLOOD CELL COUNT(AUTO) 4.22 MIL/uL (4.00-5.50); RED CELL DISTRIBUTION WIDTH 13.8 % (11.0-15.5); WHITE BLOOD COUNT (AUTO) 7.9 K/uL (4.8-10.8)
[2024-12-21 12:08] LABS: INR <= 0.93 (0.85-1.15); PROTHROMBIN TIME 10.3 SEC (9.6-11.6)
[2024-12-21 12:09] LABS: PARTIAL THROMBOPLASTIN TIME 29.3 SEC (26.3-35.5)
[2024-12-21 12:11] LABS: ALBUMIN 3.7 g/dL (3.5-5.0); BILIRUBIN,TOTAL 0.4 mg/dL (0.2-1.0); CREATININE 0.9 mg/dL (0.5-1.0); POTASSIUM 4.2 mmol/L (3.5-5.1); TOTAL PROTEIN, SERUM 7.4 g/dL (6.0-8.3)
--- NOTE | 2024-12-21 12:50 | HMCIMG ---
CHEST 1VW REASON: preop COMPARISON: 09/06/2023 FINDINGS: Single view of the chest was obtained. Lungs are clear. Heart size is normal. There is no pulmonary vascular congestion. Mediastinum and bony thorax appear unremarkable. IMPRESSION: 1. Normal single view chest x-ray.
== END ==
LOC: DAH 11:00 → EDSTATUS 01-11 10:00
PROVIDERS: ATTEND Student in an Organized Health Care Education/Training Program
DX: R59.9 Enlarged lymph nodes, unspecified (principal); Z53.8 Procedure and treatment not carried out for other reasons; E11.9 Type 2 diabetes mellitus without complications; E66.9 Obesity, unspecified; Z68.41 Body mass index [BMI] 40.0-44.9, adult; Z90.49 Acquired absence of other specified parts of digestive tract; Z79.01 Long term (current) use of anticoagulants; Z90.710 Acquired absence of both cervix and uterus; Z82.49 Family history of ischemic heart disease and other diseases of the circulatory system; Z80.9 Family history of malignant neoplasm, unspecified; Z83.3 Family history of diabetes mellitus; Z91.041 Radiographic dye allergy status
CPT/HCPCS: 80053; 85025; 85610; 85730; 36415; 71045; A6260 ×2

== ENCOUNTER → 2025-01-13 | Outpatient (CLI) | payer OTHER ==
[~2025-01-13] MED LIST changes: +0.9%NACL 1000ML 1,000 ML IV SCH; +IOHEXOL 350 MG/ML 100ML INFUS..BTL IV ONE
--- NOTE | 2025-01-13 15:00 | HMCIMG ---
CT CHEST/ABD/PELV W/WO CONTRAS REASON: LYMPHADENOPATHY COMPARISON: None TECHNIQUE: Images are obtained from thoracic inlet through the symphysis pubis following IV contrast, 100 cc Omnipaque 350. FINDINGS: Lungs are clear. There are no focal masses or infiltrates. There is no pleural effusion. Heart size is normal. Hilar and mediastinal structures appear unremarkable. There are normal-appearing bones. Soft tissues appear normal, this includes normal appearance of the axillary regions. There are no focal liver lesions. Spleen, kidneys, pancreas and adrenal glands appear normal. There is no splenomegaly. The gallbladder is absent. Bowel loops appear normal throughout. There are no focal fluid collections. There is no free air or fluid. There is no retroperitoneal or pelvic lymphadenopathy. Pelvic soft tissue structures appear normal. Anterior abdominal wall is intact. Bones appear unremarkable. IMPRESSION: 1. Negative postcontrast CT chest, abdomen and pelvis. 2. Absent gallbladder.
== END | disposition home or self-care (01) ==
LOC: RAH 01-12 11:44
PROVIDERS: ATTEND Internal Medicine
DX: R59.9 Enlarged lymph nodes, unspecified (principal); Z90.49 Acquired absence of other specified parts of digestive tract
CPT/HCPCS: 71270; 74178; Q9967

== ENCOUNTER 2025-01-15 06:40 | Day surgery (SDC) | payer OTHER ==
[2025-01-11 10:53] VITALS: BP 170/88; PULSE 74; RESP 18; TEMP 97.3
[2025-01-11 10:54] LABS: BASOPHILS # (AUTO) 0.02 K/uL (0.00-0.20); BASOPHILS % (AUTO) 0.3 % (0.0-5.0); EOSINOPHILS # (AUTO) 0.08 K/uL (0.00-0.70); EOSINOPHILS % (AUTO) 1.1 % (0.0-8.0); HEMATOCRIT 40.2 % (36-48); IMMATURE GRANULOCYTE ABSOLUTE 0.02 K/uL (0-1); LYMPHOCYTES # (AUTO) 1.9 K/uL (1.0-4.8); LYMPHOCYTES % (AUTO) 26.5 % (21.0-51.0); MEAN CORPUSCULAR HEMOGLOBIN 28.2 pg (27.0-33.0); MEAN CORPUSCULAR HGB CONC 32.8 g/dL (32.0-36.0); MEAN CORPUSCULAR VOLUME 85.9 fL (79-99); MONOCYTES # (AUTO) 0.5 K/uL (0.1-1.0); MONOCYTES % (AUTO) 6.7 % (3.0-13.0); NEUTROPHILS # (AUTO) 4.8 K/uL (1.8-7.7); NEUTROPHILS % (AUTO) 65.1 % (40.0-77.0); PLATELET COUNT (AUTO) 204 K/uL (130-400); RED BLOOD CELL COUNT(AUTO) 4.68 MIL/uL (4.00-5.50); RED CELL DISTRIBUTION WIDTH 13.9 % (11.0-15.5); WHITE BLOOD COUNT (AUTO) 7.3 K/uL (4.8-10.8)
[2025-01-11 11:04] LABS: CREATININE 0.6 mg/dL (0.5-1.0); POTASSIUM 4.1 mmol/L (3.5-5.1)
[2025-01-11 11:43] LABS: INR <= 0.93 (0.85-1.15); PROTHROMBIN TIME 10.3 SEC (9.6-11.6)
[2025-01-11 11:44] LABS: PARTIAL THROMBOPLASTIN TIME 30.5 SEC (26.3-35.5)
[2025-01-15] VITALS (19 sets, daily range): BP systolic 123–164; BP diastolic 63–85; PULSE 68–92; RESP 12–20; TEMP 96.9–98
[~2025-01-15 06:40] MED LIST changes: -0.9%NACL 1000ML 1,000 ML IV SCH; -IOHEXOL 350 MG/ML 100ML INFUS..BTL IV ONE
[2025-01-15] MEDS: ceFAZolin SODIUM 2 GM VIAL ONE (06:43)
[2025-01-15] MEDS: 0.9%NACL 1000ML 1,000 ML IV ONE (06:43)
[2025-01-15] MEDS ORDERED: FAMOTIDINE 20MG VIAL IV ONE (07:12)
[2025-01-15] MEDS ORDERED: acetaMINOPHEN 100 ML ONE (07:12)
[2025-01-15] MEDS ORDERED: LIDOCAINE PF 100MG/5ML (2%) SYRINGE 5ML ONE (07:19)
[2025-01-15] MEDS ORDERED: proPOFol 10 MG/ML 20ML VIAL IV ONE (07:20)
[2025-01-15] MEDS ORDERED: rocuRONium bROMide 10MG/1ML 5ML VL ONE (07:20)
[2025-01-15] MEDS ORDERED: FENTanyl CITRate PF 50 MCG/1 ML 2ML VIAL ONE (07:20)
[2025-01-15] MEDS ORDERED: dexaMETHasone SOD PHOSPHATE 4 MG/ML 1ML VIAL ONE (07:22)
[2025-01-15] MEDS ORDERED: SCOPOLAMINE HYDROBROMIDE 1 EACH ADH..PATCH TD ONE (07:23)
[2025-01-15] MEDS ORDERED: BUPIvacaine/PF 0.25% 30ML VIAL IJ ONE (08:06)
[2025-01-15] MEDS ORDERED: MIDAZOLAM HCL 1 MG/ML 2ML VIAL ONE (08:22)
[2025-01-15] MEDS: BUPIvacaine/PF 0.25% 30ML VIAL IJ ONE (09:00)
[2025-01-15] MEDS: ketOROlac 15MG/ML VIAL (15MG/ML) ONE (10:28)
[2025-01-15] MEDS: PROMETHAZINE HCL 25 MG/ML 1ML AMPULE IM ONE (10:47)
[2025-01-15] MEDS: DEXTROSE 50%-WATER 50 ML DISP.SYRIN IV ONE (10:50)
--- NOTE | 2025-01-15 10:54 | OP ---
Operative Note: DATE OF PROCEDURE: 01/15/25 SURGEON: DALE PUTNAM MD TAXI SERVICER: [] ANESTHESIA: General ANESTHESIOLOGIST/KEG VARNISHER: Anamaria BARNETT PREOPERATIVE DIAGNOSIS: Enlarged lymph nodes of right axilla POSTOPERATIVE DIAGNOSIS: Same SYNOPSIS: [] PROCEDURE: Right axillary dissection ESTIMATED BLOOD LOSS: 5 cc INDICATIONS: Patient with a large lymph node of the right axilla and having B symptoms of night sweats chills and weight loss. Ultrasound showed enlarged lymph nodes of the right axilla an FNA was inconclusive needing further diagnosis. Specimens removed: Right axillary lymph nodes Devices left in place: Seven Burkinan flat drain DESCRIPTION OF PROCEDURE: Patient was brought to the operating room placed on the operating table in a supine position. Once general endotracheal anesthesia was achieved patient right upper extremity and right chest were prepped and draped in sterile fashion. We then proceeded to evaluate the right axilla on palpation we could not feel the large mass that was described on ultrasound. I created a transverse incision at the bottom of the hairline and dissected through the skin and subcutaneous tissue to expose the axillary contents. On palpation I still could not feel the large 5 cm lymph node that was described on ultrasound. Because of patient's symptoms and concerns decision is made to proceed with the axillary dissection. I identified the axillary vein and took the lymphatic tissue distal to the axillary vein and made sure to identify and preserve the thoraco dorsal vascular nerve bundle. We then released the lymphatic tissue using the hand-held Harmonic. And septum off for specimen. Hemostasis was obtained. We irrigated the cavity. I then proceeded to palpate around we still could not find any 5 cm mass. We then proceeded to place a seven Burkinan flat drain. Closed the subcutaneous tissue in two layers with Vicryl suture. Skin was closed with 4-0 Monocryl in running subcuticular fashion and Dermabond is applied over top. The drain is it secured with 2-0 nylon suture. All counts correct x2 at the end of the procedure patient tolerated the procedure well. DALE PUTNAM MD Jan 15, 2025 10:54
--- NOTE | 2025-01-15 11:30 | NUR ---
DRESSING DRESSING TO RIGHT AXILLA DRY AND INTACT. CHAVO DRAIN COMPRESSED AND DRAINING REDDISH COLOR LIQUID.
--- NOTE | 2025-01-15 11:45 | NUR ---
DRESSING DRESSING DRY AND INTACT. NO SWELLING OR REDNESS NOTED. CHAVO DRAIN INTACT COMPRESSED AND DRAINING REDISH LIQUID.
--- NOTE | 2025-01-15 12:00 | NUR ---
DRESSING DRESSING DRY AND INTACT. NO REDNESS OR SWELLING NOTED. CHAVO DRAIN INTACT, COMPRESSED DRAINING REDISH LIQUID.
--- NOTE | 2025-01-15 12:15 | NUR ---
DRESSING DRESSING DRY AND INTACT. NO REDNESS OR SWELLING NOTED. CHAVO DRESSING COMPRESSED DRAINING REDISH LIQUID.
--- NOTE | 2025-01-15 12:30 | NUR ---
DRESSING DRESSING DRY AND INTACT. NO REDNESS OR SWELLING NOTED. CHAVO DRESSING COMPRESSED DRAINING REDDISH LIQUID.
== END 2025-01-15 12:45 | disposition home or self-care (01) ==
LOC: DAH 06:40
PROVIDERS: ATTEND Student in an Organized Health Care Education/Training Program
DX: I88.8 Other nonspecific lymphadenitis (principal); E66.9 Obesity, unspecified; E11.9 Type 2 diabetes mellitus without complications; Z68.41 Body mass index [BMI] 40.0-44.9, adult; Z79.01 Long term (current) use of anticoagulants; Z90.49 Acquired absence of other specified parts of digestive tract; Z90.710 Acquired absence of both cervix and uterus; Z88.8 Allergy status to other drugs, medicaments and biological substances; Z79.899 Other long term (current) drug therapy
CPT/HCPCS: 80048; 85025; 85610; 85730; 36415; 38740; 82948 ×3; 88307; 88342; A6260; J1100; J1885; A4663; J3490 ×2; J3010; J7030; J0665 ×2; J2550; J7070; J2003; J2250; J2704; J0690 ×2; A4215; A4221; A4216; C1751; A4450; A4223 ×2

== ENCOUNTER → 2025-07-14 | Outpatient (CLI) | payer OTHER ==
[2025-07-14 08:27] LABS: IMMATURE GRANULOCYTE ABSOLUTE 0.03 K/uL (0-1); NUCLEATED RED BLOOD CELLS 0.0 % (0.0-0.19); PLATELET COUNT (AUTO) 215 K/uL (130-400); RED BLOOD CELL COUNT(AUTO) 4.22 MIL/uL (4.00-5.50); RED CELL DISTRIBUTION WIDTH 14.3 % (11.0-15.5); WHITE BLOOD COUNT (AUTO) 7.1 K/uL (4.8-10.8)
[2025-07-14 09:25] LABS: ASPARTATE AMINOTRANSFERASE 18.0 U/L (10-37); CREATININE 0.7 mg/dL (0.5-1.0); GLOMERULAR FILTR. RATE CALC 100.0 mL/min (>90); GLUCOSE,RANDOM 94.0 mg/dL (70-105); LDL DIRECT 116.0 mg/dL (0-99); SODIUM SERUM 142.0 mmol/L (136-145); TOTAL PROTEIN, SERUM 7.2 g/dL (6.0-8.3); UREA NITROGEN, BLOOD 17.0 mg/dL (7-18)
[2025-07-14 09:29] LABS: ERYTHROCYTE SEDIMENTATION RATE 37 MM/HR (0-30)
[2025-07-15 08:13] LABS: RHEUMATOID ARTHRITIS FACTOR <10.0 IU/mL (<14.0)
== END | disposition home or self-care (01) ==
LOC: LAB 07:55
PROVIDERS: ATTEND Internal Medicine
DX: E03.9 Hypothyroidism, unspecified (principal); E66.01 Morbid (severe) obesity due to excess calories; H65.90 Unspecified nonsuppurative otitis media, unspecified ear; H69.80 Other specified disorders of Eustachian tube, unspecified ear; J01.90 Acute sinusitis, unspecified
CPT/HCPCS: 36415; 80053; 80061; 80076; 82043; 82306; 82533; 82570; 82607; 82672; 83001; 83002; 83036; 84144; 84146; 84443; 84550; 85025; 85651; 86140; 86431

== ENCOUNTER → 2025-09-02 | Outpatient (CLI) | payer OTHER ==
[2025-09-02 07:58] LABS: IMMATURE GRANULOCYTE ABSOLUTE 0.03 K/uL (0-1); NUCLEATED RED BLOOD CELLS 0.0 % (0.0-0.19); PLATELET COUNT (AUTO) 213 K/uL (130-400); RED BLOOD CELL COUNT(AUTO) 4.13 MIL/uL (4.00-5.50); RED CELL DISTRIBUTION WIDTH 14.1 % (11.0-15.5); WHITE BLOOD COUNT (AUTO) 7.1 K/uL (4.8-10.8)
[2025-09-02 08:29] LABS: ASPARTATE AMINOTRANSFERASE 19.0 U/L (10-37); CREATININE 0.7 mg/dL (0.5-1.0); GLOMERULAR FILTR. RATE CALC 100.0 mL/min (>90); GLUCOSE,RANDOM 93.0 mg/dL (70-105); SODIUM SERUM 141.0 mmol/L (136-145); TOTAL PROTEIN, SERUM 7.3 g/dL (6.0-8.3); UREA NITROGEN, BLOOD 16.0 mg/dL (7-18)
== END | disposition home or self-care (01) ==
LOC: LAB 07:22
PROVIDERS: ATTEND Internal Medicine
DX: K86.1 Other chronic pancreatitis (principal); I88.9 Nonspecific lymphadenitis, unspecified; K86.81 Exocrine pancreatic insufficiency; R10.13 Epigastric pain; R16.1 Splenomegaly, not elsewhere classified; R19.02 Left upper quadrant abdominal swelling, mass and lump; R63.5 Abnormal weight gain; Z80.7 Family history of other malignant neoplasms of lymphoid, hematopoietic and related tissues; Z90.49 Acquired absence of other specified parts of digestive tract
CPT/HCPCS: 36415; 80053; 83880; 84443; 85025; 86334

== ENCOUNTER → 2025-09-27 | Outpatient (CLI) | payer OTHER ==
[~2025-09-27] MED LIST changes: +IOHEXOL-350 75 ML VIAL IV ONE
--- NOTE | 2025-09-28 06:59 | HMCIMG ---
EXAM: CT Neck with Intravenous Contrast. CLINICAL HISTORY: GENERALIZED ENLARGED LYMPH NODES TECHNIQUE: Axial computed tomography images of the neck with intravenous contrast. Sagittal and coronal reformatted images were generated. CONTRAST: Intravenous contrast given. COMPARISON: CT dated 08/18 FINDINGS: PHARYNX: Unremarkable appearance of the nasopharynx, oropharyx, and hypopharynx. No pharyngeal mucosal based mass lesions. LARYNX: Normal appearance of the larynx. Unremarkable epiglottis. RETROPHARYNGEAL SPACE: The retropharyngeal soft tissues appear within normal limits. SALIVARY GLANDS: Unremarkable appearance of the parotid, submandibular, and sublingual glands. LYMPH NODES: No significant lymphadenopathy. THYROID: Unremarkable appearance of the thyroid. No thyroid nodule seen. BONES: No acute osseous abnormality. No aggressive appearing osseous lesion. Stable anterior osteophytes at the C5-C6 and C6-C7 levels. IMPRESSION: Unremarkable contrast-enhanced CT of the soft tissues of the neck. No lymphadenopathy. /Sameer
== END | disposition home or self-care (01) ==
LOC: RAH 08:19
PROVIDERS: ATTEND Internal Medicine
DX: R59.1 Generalized enlarged lymph nodes (principal); M25.78 Osteophyte, vertebrae
CPT/HCPCS: 70491; Q9967